=== PATIENT | female | born 1930 | race Caucasian/White ===

== ENCOUNTER 2017-01-25 08:13 | Observation (INO) | payer MEDICARE, OTHER ==
[2017-01-25] VITALS (8 sets, daily range): BP systolic 146–178; BP diastolic 65–78; PULSE 61–84; RESP 16–20; TEMP 97.8–97.9; O2SAT 96–99
[~2017-01-25] VITALS: Ht 149.9 cm; Wt 65.0 kg
--- NOTE | 2017-01-25 08:43 | PD ---
HPI Chief Complaint: Chest Pain Time Seen by Provider: 08:18 Travel History International Travel<30 days: No Contact w/Intl Traveler<30days: No Traveled to known affect area: No History of Present Illness HPI c/o cp, substernal, rad to right shoulder, pressure, 7/10, worse with activities , ongoing since 5 this morning....also had some episodes yesterday but they were only lasting minutes and resolving on their own....no alleviating factors. recently moved here from [place] and does not have local PCP, also denies cardiac history and states only has h/o htn, hyperlipidemia only (as well as bilateral hip replacement and right knee replacement) PFSH Past Medical History ?: Not Social History Alcohol Use: No Tobacco Use: No Allergies-Medications (Allergen,Severity, Reaction): Coded Allergies: No Known Allergies (Unverified , 01/25/17) Reported Meds & Prescriptions Reported Meds & Active Scripts Active Reported Potassium Chloride ER (Potassium Chloride) 20 Meq Tab 20 Meq PO DAILY Amlodipine (Amlodipine Besylate) 5 Mg Tab 5 Mg PO BID Hydrochlorothiazide 25 Mg Tab 25 Mg PO DAILY Aspirin Low Dose (Aspirin) 81 Mg Chew 81 Mg CHEW DAILY Metoprolol Succinate ER 24 HR (Metoprolol Succinate) 100 Mg Tab 100 Mg PO DAILY Losartan (Losartan Potassium) 50 Mg Tab 50 Mg PO DAILY Rosuvastatin (Rosuvastatin Calcium) 10 Mg Tab 10 Mg PO HS Vitamin D-[address] (Cholecalciferol) 1,000 Unit Tab 1,000 Units PO DAILY Review of Systems Except as stated in HPI: all other systems reviewed are Neg General / Constitutional: No: Fever Eyes: No: Visual changes HENT: No: Headaches Cardiovascular: Positive: Chest Pain or Discomfort Respiratory: No: Shortness of Breath Gastrointestinal: No: Abdominal Pain Genitourinary: No: Dysuria Musculoskeletal: No: Pain Skin: No Rash Neurologic: No: Weakness Psychiatric: No: Depression Endocrine: No: Polydipsia Hematologic/Lymphatic: No: Easy Bruising Physical Exam Narrative GENERAL: SKIN: Warm and dry. HEAD: Atraumatic. Normocephalic. EYES: Pupils equal and round. No scleral icterus. No injection or drainage. ENT: No nasal bleeding or discharge. Mucous membranes pink and moist. NECK: Trachea midline. No JVD. CARDIOVASCULAR: Regular rate and rhythm. RESPIRATORY: No accessory muscle use. Clear to auscultation. Breath sounds equal bilaterally. GASTROINTESTINAL: Abdomen soft, non-tender, nondistended. MUSCULOSKELETAL: Extremities without clubbing, cyanosis, or edema. No obvious deformities. NEUROLOGICAL: Awake and alert. No obvious cranial nerve deficits. Motor grossly within normal limits. Five out of 5 muscle strength in the arms and legs. Normal speech. PSYCHIATRIC: Appropriate mood and affect; insight and judgment normal. Data Data Last Documented VS Vital Signs Date Time Temp Pulse Resp B/P (MAP) Pulse Ox O2 Delivery O2 Flow Rate FiO2 01/25/17 08:49 68 18 163/68 (99) 99 Room Air 146/65 (92) 01/25/17 08:15 97.9 Orders Orders Electrocardiogram (01/25/17 08:19) B-Type Natriuretic Peptide (01/25/17 08:19) Ckmb (Isoenzyme) Profile (01/25/17 08:19) Complete Blood Count With Diff (01/25/17 08:19) Comprehensive Metabolic Panel (01/25/17 08:19) Prothrombin Time / Inr (Pt) (01/25/17 08:19) Act Partial Throm Time (Ptt) (01/25/17 08:19) Troponin I (01/25/17 08:19) Lipase (01/25/17 08:19) Chest, Single Ap (01/25/17 08:19) Ecg Monitoring (01/25/17 08:19) Bilateral Bp Monitoring (01/25/17 08:19) Iv Access Insert/Monitor (01/25/17 08:19) Oximetry (01/25/17 08:19) Oxygen Administration (01/25/17 08:19) Ct Pulmonary Angiogram (01/25/17 08:19) Aspirin Chew (Aspirin Chew) (01/25/17 08:45) Nitroglycerin 2% Oint (Nitroglycerin 2% (01/25/17 08:45) Admit Order (Ed Use Only) (01/25/17 09:40) Labs Laboratory Tests Test 01/25/17 08:30 White Blood Count 8.0 TH/MM3 Red Blood Count 4.13 MIL/MM3 Hemoglobin 12.9 GM/DL Hematocrit 37.4 % Mean Corpuscular Volume 90.6 FL Mean Corpuscular Hemoglobin 31.2 PG Mean Corpuscular Hemoglobin Concent 34.4 % Red Cell Distribution Width 13.4 % Platelet Count 217 TH/MM3 Mean Platelet Volume 7.7 FL Neutrophils (%) (Auto) 71.1 % Lymphocytes (%) (Auto) 18.1 % Monocytes (%) (Auto) 9.9 % Eosinophils (%) (Auto) 0.6 % Basophils (%) (Auto) 0.3 % Neutrophils # (Auto) 5.7 TH/MM3 Lymphocytes # (Auto) 1.4 TH/MM3 Monocytes # (Auto) 0.8 TH/MM3 Eosinophils # (Auto) 0.0 TH/MM3 Basophils # (Auto) 0.0 TH/MM3 CBC Comment DIFF FINAL Differential Comment Prothrombin Time 10.7 SEC Prothromb Time International Ratio 1.0 RATIO Activated Partial Thromboplast Time 27.8 SEC Blood Urea Nitrogen 22 MG/DL Creatinine 0.57 MG/DL Random Glucose 141 MG/DL Total Protein 7.9 GM/DL Albumin 3.5 GM/DL Calcium Level 9.3 MG/DL Alkaline Phosphatase 90 U/L Aspartate Amino Transf (AST/SGOT) 22 U/L Alanine Aminotransferase (ALT/SGPT) 19 U/L Total Bilirubin 0.6 MG/DL Sodium Level 138 MEQ/L Potassium Level 4.1 MEQ/L Chloride Level 104 MEQ/L Carbon Dioxide Level 26.2 MEQ/L Anion Gap 8 MEQ/L Estimat Glomerular Filtration Rate 101 ML/MIN Total Creatine Kinase 63 U/L Troponin I LESS THAN 0.02 NG/ML B-Type Natriuretic Peptide 123 PG/ML Lipase 161 U/L MDM Medical Decision Making Medical Screen Exam Complete: Yes Emergency Medical Condition: Yes Medical Record Reviewed: Yes Interpretation(s) pulse ox 99% on ra with normal saturation ekg: nsr 75, LBBB, no concordance and no stemi pattern Differential Diagnosis stemi v nonstemi v pna v ptx v pericardial effusion v pe Narrative Course patient noted to have lung nodule, pancreatic nodule and breast nodule on ct. i believe it prudent for patient to be admitted to chest pain center. Diagnosis Primary Impression: chest pain r/o mi Admitting Information Admitting Physician Requests: Observation Dann Alcantara MD Jan 25, 2017 08:43
[2017-01-25] MEDS ORDERED: NITROGLYCERIN 2% OINT 1 GM PACKET TOP ONE (08:45)
[2017-01-25] MEDS ORDERED: ASPIRIN 81 MG CHEW TAB PO ONE (08:45)
[2017-01-25] MEDS ORDERED: HYDR25TA5 PO (08:56)
[2017-01-25] MEDS ORDERED: VITATAB25 PO (08:56)
[2017-01-25] MEDS ORDERED: LOSA50TA PO (08:56)
[2017-01-25] MEDS ORDERED: ASPI81CH6 CHEW (08:56)
[2017-01-25] MEDS ORDERED: AMLO5TAB2 PO (08:56)
[2017-01-25] MEDS ORDERED: METO1TAB43 PO (08:56)
[2017-01-25] MEDS ORDERED: ROSU1TAB6 PO (08:56)
[2017-01-25] MEDS ORDERED: POTA-163 PO (08:56)
[2017-01-25 09:01] LABS: AUTOMATED NEUTROPHIL # 5.7 TH/MM3 (1.8-7.7); BASOPHIL % 0.3 % (0.0-2.0); EOSINOPHIL % 0.6 % (0.0-4.0); HEMATOCRIT 37.4 % (35.0-46.0); HEMO FLAGS DIFF FINAL; LYMPH % 18.1 % (9.0-44.0); LYMPHOCYTE # 1.4 TH/MM3 (1.0-4.8); MEAN CELL VOLUME 90.6 FL (80.0-100.0); MEAN CORPUSCULAR HEMOGLOBIN 31.2 PG (27.0-34.0); MEAN CORPUSCULAR HGB CONC 34.4 % (32.0-36.0); MONO % 9.9 % (0.0-8.0); NEUT % 71.1 % (16.0-70.0); PLATELET COUNT 217 TH/MM3 (150-450); RED BLOOD COUNT 4.13 MIL/MM3 (4.00-5.30); RED CELL DISTRIBUTION WIDTH 13.4 % (11.6-17.2)
[2017-01-25 09:08] LABS: APTT (PATIENT) 27.8 SEC (24.3-30.1); PROTHROMBIN TIME - PATIENT 10.7 SEC (9.8-11.6)
--- NOTE | 2017-01-25 09:09 | RADRPT ---
EXAM DATE/TIME: 01/25/2017 08:29 [facility] COMPARISON: No previous studies available for comparison. INDICATIONS : Right arm pain and right chest pains. MEDICAL HISTORY : None. SURGICAL HISTORY : None. ENCOUNTER: Initial ACUITY: 1 day PAIN SCORE: 9/10 LOCATION: Right chest FINDINGS: Portable AP view of the chest demonstrates a normal-sized cardiac silhouette. No effusion, consolidat ion, or pneumothorax is visualized. The bones and soft tissues demonstrate no acute abnormality. Ther e is mild degenerative change of the thoracic spine with dextroscoliosis. CONCLUSION: No acute cardiopulmonary abnormality is identified. Jaylen Bateman MD on January 25, 2017 at 9:07 Board Certified Radiologist. This report was verified electronically.
[2017-01-25 09:22] LABS: ALT (GPT) 19 U/L (10-53); ANION GAP 8 MEQ/L (5-15); AST (GOT) 22 U/L (15-37); BICARBONATE 26.2 MEQ/L (21.0-32.0); BLOOD UREA NITROGEN 22 MG/DL (7-18); CHLORIDE 104 MEQ/L (98-107); GLOMERULAR FILTRATION RATE 101 ML/MIN (>89); POTASSIUM 4.1 MEQ/L (3.5-5.1); SODIUM (NA) 138 MEQ/L (136-145)
[2017-01-25 09:26] LABS: ALKALINE PHOSPHATASE 90 U/L (45-117); TOTAL BILIRUBIN ADULT 0.6 MG/DL (0.2-1.0)
[2017-01-25 09:29] LABS: CREATINE KINASE 63 U/L (26-192)
[2017-01-25] MEDS ORDERED: IOHEXOL 350 MG/ML 10 ML VIAL (for RAD DIAG) IVCONTRAST ONE (09:58)
--- NOTE | 2017-01-25 10:43 | RADRPT ---
EXAM DATE/TIME: 01/25/2017 09:56 [facility] COMPARISON: No previous studies available for comparison. INDICATIONS : Right upper chest pain today. IV CONTRAST: 74 cc Omnipaque 350 (iohexol) IV RADIATION DOSE: 23.26 CTDIvol (mGy) MEDICAL HISTORY : None SURGICAL HISTORY : None. ENCOUNTER: Initial ACUITY: 1 day PAIN SCALE: 6/10 LOCATION: Right upper chest TECHNIQUE: Volumetric scanning of the chest was performed using a pulmonary embolism protocol MIP images were re constructed. Using automated exposure control and adjustment of the mA and/or kV according to patien t size, radiation dose was kept as low as reasonably achievable to obtain optimal diagnostic quality images. DICOM format image data is available electronically for review and comparison. Follow-up recommendations for detected pulmonary nodules are based at a minimum on nodule size and pa tient risk factors according to Fleischner Society Guidelines. FINDINGS: PULMONARY ARTERIES: No filling defects are seen in the pulmonary arteries through the segmental level. LUNGS: There is a 12 mm intraparenchymal nodule involving the medial basilar segment of the right lower lobe . It is smoothly marginated. No other nodules observed. No infiltrates. PLEURAE: There is no pleural thickening or pleural effusion. MEDIASTINUM: The heart is at the upper limits of normal in terms of size. No pericardial effusion. Aorta and pulmo nary arteries are normal in caliber. No adenopathy. MUSCULOSKELETAL: Within normal limits for patient age. MISCELLANEOUS: There is a 2.6 cm cystic lesion involving the visualized portions of the spleen. There is a 1.7 x 0.6 cm low-density lesion involving the anterior body of the pancreas. Hounsfield units are 7 year in a 9 mm soft tissue nodule seen involving the inferior portion of the right breast. No axillary adenopat hy observed. CONCLUSION: 1. No pulmonary embolus. 2. 12 mm right lower lobe pulmonary nodule. This is nonspecific in its CT appearance. Consideration c ould be made to PET CT to further evaluate this lesion. 3. 9 mm right breast nodule. Correlation with mammography is needed. 4. 17 x 6 mm pancreatic lesion poorly characterized on this study. MRI would be needed to further ana racterize this lesion. 5. 2.6 cm splenic cyst. Edgar Roy Jr., MD on January 25, 2017 at 10:10 Board Certified Radiologist. This report was verified electronically.
[2017-01-25] MEDS ORDERED: SODIUM CHLORIDE 0.9% FLUSH 10 ML FLUSH IV FLUSH PRN (11:15)
[2017-01-25] MEDS ORDERED: NITROGLYCERIN 0.4 MG SL 25 TABS/BTL SL PRN (11:15)
[2017-01-25] MEDS ORDERED: ACETAMINOPHEN 500 MG CPLT PO PRN (11:15)
[2017-01-25] MEDS ORDERED: ONDANSETRON HCL 4 MG/2 ML VIAL IV PUSH PRN (11:15)
[2017-01-25 12:09] LABS: CREATINE KINASE 61 U/L (26-192)
--- NOTE | 2017-01-25 12:22 | HHI.HP ---
HPI Primary Care Physician No Primary Care Physician Chief Complaint Right shoulder pain History of Present Illness 86-year-old female with history of hypertension, hyperlipidemia, and osteoarthritis presents to emergency room for further evaluation right shoulder pain. Onset last evening 9 PM. Location right shoulder. Characterized as a "ache." Radiation to right anterior chest. Duration constant. No associated symptoms. Precipitating factors include moving right arm in certain position or laying on left side. No known relieving factors. No known injury or trauma. No recent fall. Recently moved from [place] 6 weeks ago, has not established with a PCP Review of Systems General: No fatigue,weakness, fever, chills, recent illness, or change in appetite. As been her general state of health. Recently moved from [place] 6 weeks ago. HEENT: No RAMOS, no vision changes CV: No chest pain, discomfort, pressure, palpitations, intermittent leg pain, or dizziness RESP: No SOB, cough, wheeze, or recent URI. GI: No nausea, vomiting, or bowel changes : No dysuria, urgency, frequency EXT: No lower leg edema, no paraesthesias MS: As stated above. No change in ROM, injury, or recent fall. NEURO: No difficulty with balance, LOC, motor/sensory deficits PSYCH: No anxiety, depression, or situational stress. SKIN: No rashes, no concerning lesions Past Family Social History Allergies: Coded Allergies: No Known Allergies (Unverified , 01/25/17) Past Medical History HTN, HLD, Osteoarthritis Past Surgical History Bilateral hip replacement, R knee replacement Reported Medications Reported Meds & Active Scripts Active Reported Potassium Chloride ER (Potassium Chloride) 20 Meq Tab 20 Meq PO DAILY Amlodipine (Amlodipine Besylate) 5 Mg Tab 5 Mg PO BID Hydrochlorothiazide 25 Mg Tab 25 Mg PO DAILY Aspirin Low Dose (Aspirin) 81 Mg Chew 81 Mg CHEW DAILY Metoprolol Succinate ER 24 HR (Metoprolol Succinate) 100 Mg Tab 100 Mg PO DAILY Losartan (Losartan Potassium) 50 Mg Tab 50 Mg PO DAILY Rosuvastatin (Rosuvastatin Calcium) 10 Mg Tab 10 Mg PO HS Vitamin D-[address] (Cholecalciferol) 1,000 Unit Tab 1,000 Units PO DAILY Active Ordered Medications Current Medications Medications (Trade) Dose Ordered Sig/Jaun Route Start Time Stop Time Status Last Admin (NS Flush) 2 ml UNSCH PRN IV FLUSH 01/25/17 11:15 (NS Flush) 2 ml BID IV FLUSH 01/25/17 21:00 (Tylenol) 500 mg Q4H PRN PO 01/25/17 11:15 (Zofran Inj) 4 mg Q6H PRN IV PUSH 01/25/17 11:15 (Nitrostat Sl) 0.4 mg Q5M PRN SL 01/25/17 11:15 (Aspirin) 325 mg DAILY PO 01/26/17 09:00 Family History Noncontributory for early onset cardiovascular disease. Social History Known hypertension and hyperlipidemia. No known diabetes or CAD. Lifelong nonsmoker. Denies any alcohol. Endorses a sedentary lifestyle. Past cardiac testing Chemical stress testing 2-3 years ago reported to be unremarkable. Bilateral carotid ultrasound reported to be unremarkable 1 year ago. Never required a catheterization. Followed by greenhouse worker in [place] due to chest pain, not for any particular diagnosis. Physical Exam Vital Signs Vital Signs Date Time Temp Pulse Resp B/P (MAP) Pulse Ox O2 Delivery O2 Flow Rate FiO2 01/25/17 11:39 97.8 61 16 151/67 (95) 96 01/25/17 10:52 70 18 157/70 (99) 99 01/25/17 08:49 68 18 163/68 (99) 99 Room Air 146/65 (92) 01/25/17 08:36 98 Room Air 01/25/17 08:36 100 Room Air 01/25/17 08:36 64 18 100 Room Air 01/25/17 08:21 74 18 178/75 (109) 99 01/25/17 08:15 97.9 84 20 177/78 (111) 96 Physical Exam GENERAL: Alert WN, WD, NAD, pleasant, elderly, frail, female HEAD: NC, AT EYES: Sclera clear, conjunctiva without injection, pupils equal and round ENT: Mucous membranes pink and moist NECK: Supple, no masses, trachea midline CV: RRR, 2/6 systolic murmur, suspect mild aortic sclerosis, No rub, gallop, or JVD, S1-S2 no S3-S4. Bilateral carotid bruits noted was likely referred sounds from systolic murmur. No femoral bruit. RESP: Clear lungs throughout bilateral, no crackles, wheeze, rhonchi, symmetrical chest rise, nonlabored, able to speak in full sentences ABD: Soft, NT, ND, no masses, positive bowel tones EXT: Pulses +24, no dependent edema, bilateral lower extremities varicose veins MS: Normal tone 4 extremities, no obvious deformities, full range of motion, pain reproduction with passive interior rotation of right shoulder, right shoulder pain not reproduced. NEURO: CN II through CN XII grossly intact, motor strength 5/5 PSYCH: A+O 3, pleasant affect, appropriate speech, insight and judgment SKIN: Normal turgor, normal texture, no lesions, no rashes, brisk cap refill, even hair distribution Laboratory Laboratory Tests Test 01/25/17 08:30 01/25/17 11:30 White Blood Count 8.0 Red Blood Count 4.13 Hemoglobin 12.9 Hematocrit 37.4 Mean Corpuscular Volume 90.6 Mean Corpuscular Hemoglobin 31.2 Mean Corpuscular Hemoglobin Concent 34.4 Red Cell Distribution Width 13.4 Platelet Count 217 Mean Platelet Volume 7.7 Neutrophils (%) (Auto) 71.1 Lymphocytes (%) (Auto) 18.1 Monocytes (%) (Auto) 9.9 Eosinophils (%) (Auto) 0.6 Basophils (%) (Auto) 0.3 Neutrophils # (Auto) 5.7 Lymphocytes # (Auto) 1.4 Monocytes # (Auto) 0.8 Eosinophils # (Auto) 0.0 Basophils # (Auto) 0.0 CBC Comment DIFF FINAL Differential Comment Prothrombin Time 10.7 Prothromb Time International Ratio 1.0 Activated Partial Thromboplast Time 27.8 Blood Urea Nitrogen 22 Creatinine 0.57 Random Glucose 141 Total Protein 7.9 Albumin 3.5 Calcium Level 9.3 Alkaline Phosphatase 90 Aspartate Amino Transf (AST/SGOT) 22 Alanine Aminotransferase (ALT/SGPT) 19 Total Bilirubin 0.6 Sodium Level 138 Potassium Level 4.1 Chloride Level 104 Carbon Dioxide Level 26.2 Anion Gap 8 Estimat Glomerular Filtration Rate 101 Total Creatine Kinase 63 61 Troponin I LESS THAN 0.02 LESS THAN 0.02 B-Type Natriuretic Peptide 123 Lipase 161 Result Diagram: 01/25/1782901/25/17829 Imaging Last Impressions Chest X-Ray 01/25/17818 Signed Impressions: Service Date/Time: Wednesday, January 25, 2017 08:29 - CONCLUSION: No acute cardiopulmonary abnormality is identified. Jaylen Bateman MD CT Angiography 01/25/17818 Signed Impressions: Service Date/Time: Wednesday, January 25, 2017 09:56 - CONCLUSION: 1. No pulmonary embolus. 2. 12 mm right lower lobe pulmonary nodule. This is nonspecific in its CT appearance. Consideration could be made to PET CT to further evaluate this lesion. 3. 9 mm right breast nodule. Correlation with mammography is needed. 4. 17 x 6 mm pancreatic lesion poorly characterized on this study. MRI would be needed to further characterize this lesion. 5. 2.6 cm splenic cyst. Edgar Roy Jr., MD Course EKG Left bundle branch block Caprini VTE Risk Assessment Caprini VTE Risk Assessment: Mod/High Risk (score >= 2) Caprini Risk Assessment Model Point Value = 1 Point Value = 2 Point Value = 3 Point Value = 5 Age 41-60 Minor surgery BMI > 25 kg/m2 Swollen legs Varicose veins or History of unexplained or recurrent spontaneous Oral contraceptives or hormone replacement Sepsis (< 1 month) Serious lung disease, including pneumonia (< 1 month) Abnormal pulmonary function Acute myocardial infarction Congestive heart failure (< 1 month) History of inflammatory bowel disease Medical patient at bed rest Age 61-74 Arthroscopic surgery Major open surgery (> 45 min) Laparoscopic surgery (> 45 min) Malignancy Confined to bed (> 72 hours) Immobilizing plaster cast Central venous access Age >= 75 History of VTE Family history of VTE Factor V Leiden Prothrombin [id number] Lupus anticoagulant Anticardiolipin antibodies Elevated serum homocysteine Heparin-induced thrombocytopenia Other congenital or acquired thrombophilia Stroke (< 1 month) Elective arthroplasty Hip, pelvis, or leg fracture Acute spinal cord injury (< 1 month) Prophylaxis Regimen Total Risk Factor Score Risk Level Prophylaxis Regimen 0-1 Low Early ambulation 2 Moderate Order ONE of the following: *Sequential Compression Device (SCD) *Heparin 5000 units SQ BID 3-4 Higher Order ONE of the following medications: *Heparin 5000 units SQ TID *Enoxaparin/Lovenox 40 mg SQ daily (WT < 150 kg, CrCl > 30 mL/min) *Enoxaparin/Lovenox 30 mg SQ daily (WT < 150 kg, CrCl > 10-29 mL/min) *Enoxaparin/Lovenox 30 mg SQ BID (WT < 150 kg, CrCl > 30 mL/min) AND/OR *Sequential Compression Device (SCD) 5 or more Highest Order ONE of the following medications: *Heparin 5000 units SQ TID (Preferred with Epidurals) *Enoxaparin/Lovenox 40 mg SQ daily (WT < 150 kg, CrCl > 30 mL/min) *Enoxaparin/Lovenox 30 mg SQ daily (WT < 150 kg, CrCl > 10-29 mL/min) *Enoxaparin/Lovenox 30 mg SQ BID (WT < 150 kg, CrCl > 30 mL/min) AND *Sequential Compression Device (SCD) Assessment and Plan Assessment and Plan #1 Atypical chest pain-admitted to chest pain center. Will complete serial EKG and cardiac enzymes per protocol, however discomfort highly unlikely to be cardiac related. Will be seen and evaluated Dr. Ashvin Christianson. Obtain medical records from greenhouse worker in [place] to determine if Left Bundle branch block old as suspected. #2 Pain in right shoulder region-discussed discomfort may be related to her osteoarthritis, offered analgesia, such as ibuprofen, patient declines. Encouraged follow up with PCP, may use heat to affected area. No acute findings on exam. #3 Hyperlipidemia-continue rosuvastatin #4 Hypertension-continue metoprolol, amlodipine, losartan, hydrochlorothiazide, KCL CT results discussed in with patient and , encouraged and stressed importance of establishing with a PCP. Instructed to obtain records from PCP in [place] for comparisons. Nell Roberts Jan 25, 2017 12:22
[2017-01-25] MEDS ORDERED: CHOLECALCIFEROL (VIT D3) 1000 UNIT TAB PO SCH (12:30)
[2017-01-25] MEDS ORDERED: LOSARTAN 50 MG TAB PO SCH (12:30)
[2017-01-25] MEDS ORDERED: POTASSIUM CHLORIDE 20 MEQ CONTROLLED RELEASE TAB PO SCH (12:30)
[2017-01-25] MEDS ORDERED: amLODIPine BESYLATE 5 MG TAB PO SCH (12:30)
[2017-01-25] MEDS ORDERED: METOPROLOL SUCCINATE 50 MG EXTENDED RELEASE TAB PO SCH (12:30)
[2017-01-25] MEDS ORDERED: HYDROCHLOROTHIAZIDE 25 MG TAB PO SCH (12:30)
--- NOTE | 2017-01-25 14:29 | EKG ---
Date Performed: 01/25/2017 Time Performed: 08:25:06 PTAGE: 86 years EKG: Sinus rhythm LEFT BUNDLE BRANCH BLOCK ABNORMAL ECG NO PREVIOUS TRACING DOCTOR: Ashvin Christianson Interpretating Date/Time 01/25/2017 14:27:26
[2017-01-25] MEDS ORDERED: REGADENOSON INJ 0.4 MG/5 ML SYR ONE (15:19)
--- NOTE | 2017-01-25 16:47 | RADRPT ---
EXAM DATE/TIME: 01/25/2017 15:03 [facility] COMPARISON: CT PULMONARY ANGIOGRAM, January 25, 2017, 9:56. INDICATIONS : Substernal chest pain radiating to right shoulder. Angina. DOSE: 25.9 mCi Tc99m Myoview at stress. 8.1 mCi Tc99m Myoview at rest. 0.4 mg Lexiscan STRESS SYMPTOMS: Short of breath. EJECTION FRACTION: 69% MEDICAL HISTORY : Hypertension. SURGICAL HISTORY : Total knee replacement, right. Bilateral hips. ENCOUNTER: Initial ACUITY: 1 day PAIN SCALE: 7/10 LOCATION: Substernal chest TECHNIQUE: The patient underwent pharmacologic stress with infusion of prescribed dose. Continuous ECG tracing was monitored during stress. Gated SPECT imaging was performed after stress and conventional SPECT i maging was performed at rest. The examination was performed on a SPECT/CT scanner, both attenuation and non-corrected datasets were reviewed. FINDINGS: DISTRIBUTION: The maximum perfused segment at stress is in the anterolateral wall. PERFUSION STUDY: The pattern of perfusion at stress is within normal limits. No fixed or a small perfusion defect is i dentified. GATED STUDY: There is intact wall motion and thickening without hypokinetic or dyskinetic segments. CONCLUSION: 1. Left ventricle perfusion is within normal limits without fixed or reversible perfusion defect iden tified. 2. Normal left ventricle wall motion and ejection fraction. RISK CATEGORY: Low (<1% Annual Mortality Rate) Jaylen Bateman MD on January 25, 2017 at 16:44 Board Certified Radiologist. This report was verified electronically.
--- NOTE | 2017-01-25 17:56 | HHI.DCPOC ---
Discharge Care Plan Diagnosis: (1) Atypical chest pain (2) Lung nodule Goals to Promote Your Health * To prevent worsening of your condition and complications * To maintain your health at the optimal level Directions to Meet Your Goals Take your medications as prescribed Follow your dietary instruction Follow activity as directed Keep your appointments as scheduled Take your immunizations and boosters as scheduled If your symptoms worsen call your PCP, if no PCP go to Urgent Care Center or Emergency Room Smoking is Dangerous to Your Health. Avoid second hand smoke Call the 24-hour hour crisis hotline for domestic abuse at Nell Roberts Jan 25, 2017 17:56
[2017-01-25] MEDS ORDERED: ATORVASTATIN 20 MG TAB PO SCH (21:00)
[2017-01-25] MEDS ORDERED: SODIUM CHLORIDE 0.9% FLUSH 10 ML FLUSH IV FLUSH SCH (21:00)
--- NOTE | 2017-01-26 07:22 | TR ---
Date Performed: 01/25/2017 Time Performed: 15:35:19 DOCTOR: Janet Ley DRUG LIST: CLINICAL HISTORY: REASON FOR TEST: REASON FOR ENDING: OBSERVATION: CONCLUSION: Lexiscan stress test was performed under standard four minute protocol. Radionuclid e was injected one minute prior to ending the test. No electrocardiographic abormalities were present to suggest ischemia. Nuclear imaging and interpretation are pending. COMMENTS:
--- NOTE | 2017-01-26 07:28 | EKG ---
Date Performed: 01/25/2017 Time Performed: 11:48:19 PTAGE: 86 years EKG: SINUS BRADYCARDIA LEFT BUNDLE BRANCH BLOCK ABNORMAL ECG Since PREVIOUS TRACING , no significant change noted DOCTOR: Janet Ley Interpretating Date/Time 01/26/2017 07:27:00
[2017-01-26] MEDS ORDERED: ASPIRIN 325 MG TAB PO SCH (09:00)
== END 2017-01-25 18:55 | disposition home or self-care (01) ==
LOC: NEPE 08:13 → NEDA 09:42 → NEPHCDU 10:58
PROVIDERS: ADMIT Internal Medicine Cardiovascular Disease; ATTEND Internal Medicine Cardiovascular Disease
DX: R07.9 Chest pain, unspecified (principal); R91.1 Solitary pulmonary nodule; I10 Essential (primary) hypertension; E78.5 Hyperlipidemia, unspecified; Z79.899 Other long term (current) drug therapy; M25.511 Pain in right shoulder; M19.90 Unspecified osteoarthritis, unspecified site; N63.10 Unspecified lump in the right breast, unspecified quadrant; D73.4 Cyst of spleen; I44.7 Left bundle-branch block, unspecified; R94.31 Abnormal electrocardiogram [ECG] [EKG]; R06.02 Shortness of breath
CPT/HCPCS: 71010; 71275; 78452; 80053; 82550; 83690; 83880; 84484; 85025; 85610; 85730; 93005; 93017; 99285; A9502; G0378; J2785; Q9967